=== PATIENT | male | born 2000 | race Hispanic/Latino ===

== ENCOUNTER 2025-02-03 03:30 | Emergency (ER) | payer SELFPAY ==
[2025-02-03] MEDS ORDERED: Ibuprofen 800 MG TAB ONE (05:38)
[2025-02-03] MEDS ORDERED: Amoxicillin/Potassium Clav 875 MG TAB ONE (05:38)
== END 2025-02-03 05:55 | disposition home or self-care (01) ==
LOC: ERS 03:30
DX: S02.2XXA Fracture of nasal bones, initial encounter for closed fracture (principal); S02.40FA Zygomatic fracture, left side, initial encounter for closed fracture; Y04.8XXA Assault by other bodily force, initial encounter; Y93.89 Activity, other specified; Z75.8 Other problems related to medical facilities and other health care; Z55.6 Problems related to health literacy
CPT/HCPCS: 36416; 70450; 70486; 71250; 72125; 93005